=== PATIENT | female | born 1970 | race Caucasian/White ===

== ENCOUNTER 2016-07-17 07:12 | Inpatient (IN) | payer OTHER ==
[2016-07-17] VITALS (7 sets, daily range): BP systolic 110–121; BP diastolic 71–78; PULSE 71–81; TEMP 36.5–37; O2SAT 92–97; Ht 165.1 cm; Wt 133.5 kg
[~2016-07-17] VITALS: Ht 165.1 cm; Wt 133.5 kg
[2016-07-17] MEDS ORDERED: MoRPHine SULFATE 4 MG/ML 1 ML CARP\\VIAL IV STA (07:42)
[2016-07-17] MEDS ORDERED: ONDANSETRON INJ 2 MG/ML 2 ML VIAL IV STA (07:42)
[2016-07-17] MEDS ORDERED: OPTIRAY 320 IV PRN (08:00)
[2016-07-17 08:07] LABS: BASO % 0.3 %; BASO ABS # 0.03 K/uL (0-0.2); COMPLETE YES; EOS % 0.8 %; HEMATOCRIT 37.6 % (37-47); IG% 0.2 %; LYMPH % 9.4 %; LYMPH ABS # 1.02 K/uL (1.2-3.4); MEAN CELL VOLUME 87.9 fL (80-100); MEAN CORPUSCULAR HEMOGLOBIN 30.1 pg (25-34); MEAN CORPUSCULAR HGB CONC 34.3 g/dl (32-36); MONO % 4.4 %; NEUT % 84.9 %; PLATELET COUNT 208 K/uL (130-400); RED BLOOD COUNT 4.28 M/uL (4.2-5.4); WHITE BLOOD COUNT 10.82 K/uL (4.8-10.8)
[2016-07-17 08:22] LABS: CALCIUM 8.4 mg/dl (8.5-10.1)
[2016-07-17 08:24] LABS: CREATININE 0.49 mg/dl (0.60-1.20); POTASSIUM 3.7 mmol/L (3.5-5.1); PREG INTERNAL NEGATIVE QC NEG CLEAR BACKGROUND; PREG INTERNAL POSITIVE QC POS CONTROL LINE
[2016-07-17] MEDS ORDERED: SODIUM CHLORIDE 0.9% 1000ML 1,000 ML IV STA (08:26)
[2016-07-17] MEDS ORDERED: SODIUM CHLORIDE 0.9% 1000ML 500 ML IV STA (08:26)
--- NOTE | 2016-07-17 09:05 | DIAGNOSTIC IMAGING REPORT ---
PELVIS W/IV CONT ONLY (CT) HISTORY: Rectal pain. TECHNIQUE: Multiaxial CT images of the pelvis are performed following the use of intravenous contrast. COMPARISON STUDY: None. FINDINGS: Suboptimal evaluation of pelvis due to streak artifact from the patient's body habitus and abutting the CT scan tree. Within the left anterior perianal location there is a 3.1 x 2.8 cm loculated fluid collection. There is mild surrounding fat stranding. This favors a perianal abscess. No evidence for supralevator extension. Pelvic organs are not well visualized. However, the bladder, uterus, and ovaries appear unremarkable. No pelvic free fluid. No significant pelvic lymphadenopathy. Sigmoid diverticulosis. Tiny fat-containing umbilical hernia. No fractures within the visualized osseous structures. IMPRESSION: There is a 3.1 x 2.8 cm loculated fluid collection within the left anterior perianal location. This likely represents a perianal abscess. Electronically signed by: Fletcher Jacinto M.D. 07/17/2016 9:04 AM Dictated Date/Time: 07/17/2016 9:00 AM
--- NOTE | 2016-07-17 09:47 | EMERGENCY ROOM VISIT NOTE ---
History First contact with patient: : Chief Complaint: RECTAL PAIN Stated Complaint: GI TRACK PAIN, Nursing Triage Summary: Pt c/o hemorrhoid that she noticed Sunday History of Present Illness Patient is a 46-year-old Y[place] female who presents to the emergency Department coming by her for evaluation of rectal pain 5 days. Patient states that last Sunday she began to notice left-sided rectal pain, swelling and pressure. It has progressively worsened throughout the weekend and she states that it woke her at around 2:30 this morning. She presently rates her pain a 10 /10. She has been using acetaminophen without relief. She has had difficulty finding a comfortable position, stating that when she sits she feels a deep pressure and feels like she is sitting on a lump. She denies any drainage or discharge from the area. She subjectively felt feverish and had chills last night but did not record her temperature with a thermometer. She denies any dysuria, frequency, urgency or hematuria. She states that her menses started yesterday, and was normal for her. She reports having a bowel movement this morning, noted some discomfort with this, but denies any diarrhea, melena or hematochezia. She does note that her bowel movements have been normal for a couple of months. She relates going between constipation and loose stools. She has never had this evaluated. She's never had a colonoscopy. Review of Systems Review of systems as per HPI. All other systems reviewed were negative. 10 systems reviewed. Past Medical/Surgical History Medical Problems: (1) No Known Active Medical Problems Surgical Problems: (1) H/O section Electronic medical records are reviewed and summarized as above/below. See Problem List. Social History Smoking Status: Never Smoker Marital Status: Housing Status: lives with family Current/Historical Medications No Active Prescriptions or Reported Meds Allergies Coded Allergies: Amoxicillin (Verified Allergy, Severe, SHORTNESS OF BREATH, 07/17/16) Penicillins (Verified Allergy, Severe, SHORTNESS OF BREATH, 07/17/16) Physical Exam Vital Signs Date Time Temp Pulse Resp B/P Pulse Ox O2 Delivery O2 Flow Rate FiO2 07/17/16 10:23 80 20 123/81 97 Room Air 07/17/16 09:22 84 20 117/84 98 Room Air 07/17/16 08:08 84 20 115/76 92 Room Air 07/17/16 07:18 36.9 93 20 156/96 92 Room Air Physical Exam CONSTITUTIONAL: Patient is an uncomfortable-appearing 46-year-old white female who is awake and alert and in mild distress due to her discomfort. CARDIOVASCULAR: Regular rate and rhythm, with normal S1 and S2, no murmur or gallop or rub is heard. No carotid bruits auscultated. No JVD. Peripheral pulses easily palpable. RESPIRATORY: Breath sounds equal and clear to auscultation without wheezes, rales, or rhonchi heard. Full and equal chest expansion without accessory muscle use or retractions. ABDOMEN: Bowel sounds are present. Abdomen is soft, obese, nontender and nondistended. /RECTAL : Examination of the perineal/rectal area show a slightly swollen, tender external hemorrhoid, between 4 and 6:00. It is not obviously thrombosed. She does have tenderness and induration in the left rectal area extending toward the perineal area, no fluctuance is appreciated. It is slightly erythematous, although not overtly cellulitic. It does not involve the labial area and does not appear consistent with a swollen gland cyst/ abscess. INTEGUMENTARY: No lesions or rash, normal skin turgor. LYMPH: No lymphadenopathy. Medical Decision & Procedures ER Provider Diagnostic Interpretation: PELVIS W/IV CONT ONLY (CT) HISTORY: Rectal pain. TECHNIQUE: Multiaxial CT images of the pelvis are performed following the use of intravenous contrast. COMPARISON STUDY: None. FINDINGS: Suboptimal evaluation of pelvis due to streak artifact from the patient's body habitus and abutting the CT scan tree. Within the left anterior perianal location there is a 3.1 x 2.8 cm loculated fluid collection. There is mild surrounding fat stranding. This favors a perianal abscess. No evidence for supralevator extension. Pelvic organs are not well visualized. However, the bladder, uterus, and ovaries appear unremarkable. No pelvic free fluid. No significant pelvic lymphadenopathy. Sigmoid diverticulosis. Tiny fat-containing umbilical hernia. No fractures within the visualized osseous structures. IMPRESSION: There is a 3.1 x 2.8 cm loculated fluid collection within the left anterior perianal location. This likely represents a perianal abscess. Laboratory Results 07/17/16 07:55 Red Blood Count 4.28, Mean Corpuscular Volume 87.9, Mean Corpuscular Hemoglobin 30.1, Mean Corpuscular Hemoglobin Concent 34.3, Mean Platelet Volume 9.0, Neutrophils (%) (Auto) 84.9, Lymphocytes (%) (Auto) 9.4, Monocytes (%) (Auto) 4.4, Eosinophils (%) (Auto) 0.8, Basophils (%) (Auto) 0.3, Neutrophils # (Auto) 9.18, Lymphocytes # (Auto) 1.02, Monocytes # (Auto) 0.48, Eosinophils # (Auto) 0.09, Basophils # (Auto) 0.03 07/17/16 07:55 Test 07/17/16 07:55 White Blood Count 10.82 K/uL (4.8-10.8) Red Blood Count 4.28 M/uL (4.2-5.4) Hemoglobin 12.9 g/dL (12.0-16.0) Hematocrit 37.6 % (37-47) Mean Corpuscular Volume 87.9 fL (80-100) Mean Corpuscular Hemoglobin 30.1 pg (25-34) Mean Corpuscular Hemoglobin Concent 34.3 g/dl (32-36) Platelet Count 208 K/uL (130-400) Mean Platelet Volume 9.0 fL (7.4-10.4) Neutrophils (%) (Auto) 84.9 % Lymphocytes (%) (Auto) 9.4 % Monocytes (%) (Auto) 4.4 % Eosinophils (%) (Auto) 0.8 % Basophils (%) (Auto) 0.3 % Neutrophils # (Auto) 9.18 K/uL (1.4-6.5) Lymphocytes # (Auto) 1.02 K/uL (1.2-3.4) Monocytes # (Auto) 0.48 K/uL (0.11-0.59) Eosinophils # (Auto) 0.09 K/uL (0-0.5) Basophils # (Auto) 0.03 K/uL (0-0.2) RDW Standard Deviation 42.6 fL (36.4-46.3) RDW Coefficient of Variation 13.3 % (11.5-14.5) Immature Granulocyte % (Auto) 0.2 % Immature Granulocyte # (Auto) 0.02 K/uL (0.00-0.02) Anion Gap 9.0 mmol/L (3-11) Est Creatinine Clear Calc Drug Dose 200.5 ml/min Estimated GFR () 136.4 Estimated GFR (Non- 117.7 BUN/Creatinine Ratio 19.0 (10-20) Calcium Level 8.4 mg/dl (8.5-10.1) Human Chorionic Gonadotropin, Qual NEG (NEG) Medications Administered Medications (Trade) Dose Ordered Sig/Daniel Route Start Time Stop Time Status Last Admin Dose Admin Ondansetron HCl (Zofran Inj) 4 mg NOW STAT IV 07/17/16 07:42 07/17/16 07:45 DC 07/17/16 08:04 4 MG Morphine Sulfate 4 mg 4 mg NOW STAT IV 07/17/16 07:42 07/17/16 07:45 DC 07/17/16 08:05 4 MG Sodium Chloride 500 ml @ 999 mls/hr Q31M STAT IV 07/17/16 08:26 07/17/16 08:56 DC 07/17/16 09:22 999 MLS/HR Sodium Chloride (Nss 1000ml) 1,000 ml @ 250 mls/hr Q4H STAT IV 07/17/16 08:26 07/17/16 12:25 07/17/16 08:26 250 MLS/HR Metronidazole (Flagyl / Nss) 500 mg STK-MED ONCE .ROUTE 07/17/16 10:21 07/17/16 10:22 DC 07/17/16 10:23 500 MG ED Course The patient was seen and assessed as above. Her old records reviewed. IV lock was initiated and she was hydrated with normal saline solution. She was made NPO. Patient was hydrated with normal saline solution, medicated with morphine 4 mg and Zofran 4 mg IV. CBC with differential, BMP and serum hCG were performed. Given the patient's physical exam findings, I did elect to perform a CT scan of the pelvis with IV contrast only to evaluate the perirectal area. Laboratory studies noted a slightly elevated white count at 10,800, with left shift, no bandemia. Electrolytes are within normal limits. Renal function is not elevated. Serum hCG was negative. CT scan was consistent with a roughly 3 x 3 cm loculated fluid collection within the left anterior perianal area, likely representing a perianal abscess. The patient was reviewed with attending physician, and discussed with general surgery on-call, Dr. Mendoza. He evaluated the patient in the emergency department , and plans to take her to the OR for I&D, then admission for IV antibiotics. Differential diagnoses entertained included thrombosed hemorrhoid, or perirectal versus perianal abscess, Bartholin gland cyst/abscess, among others. Her physical exam is not consistent with Tj's gangrene. Medical Decision See ED Course. Impression Primary Impression: Perianal abscess Departure Information Dispostion Being Evaluated By Surgeon Prescriptions No Active Prescriptions or Reported Meds Referrals Carito Anderson PA-C (PCP) Patient Instructions [facility]
[2016-07-17] MEDS ORDERED: CIPROFLOXACIN 400MG / 200ML D5W IV STA (10:13)
[2016-07-17] MEDS ORDERED: METRONIDAZOLE 500MG / 100ML NSS IV STA (10:13)
--- NOTE | 2016-07-17 10:20 | History and Physical: Surg Cnt ---
History & Physical Date July 17, 2016. Chief Complaint Rectal pain x 5 days History of Present Illness The patient is a 46 year old female with complaints of rectal pain for the past 5 days. States she noticed it starting Sunday and progressively got worse. States she has been unable to get in a comfortable position. Denies of any drainage. Last bowel movement was this morning which she states she had some discomfort with it. Denies of any blood in stools. Started her Menses this morning. Denies of any similar episodes. Pain is severe, rating a 10/10. States she had some chills and sweats but unsure about a fever. CT scan of the pelvis showed a 3.1 x 2.8 cm loculated fluid collection within the left anterior perianal location. This likely represents a perianal abscess. She has a slight leukocytosis of 10.82 Vital signs stable Past Medical/Surgical History Medical Problems: (1) No Known Active Medical Problems Surgical Problems: (1) H/O section Allergies Coded Allergies: Amoxicillin (Verified Allergy, Severe, SHORTNESS OF BREATH, 07/17/16) Penicillins (Verified Allergy, Severe, SHORTNESS OF BREATH, 07/17/16) Home Medications No Active Prescriptions or Reported Meds Physical Examination Skin: warm/dry, no rash Head: normocephalic, atraumatic Neck: trachea midline Respiratory/Chest: no respiratory distress Genitourinary - Female: external genitalia normal, + pertinent finding (menses with blood present) Neurologic/Psych: alert, oriented x 3 Addiitonal Comments: Anterior left perianal area with induration present. No significant cellulitis or streaking. No drainage. Very tender on palpation. Unable to completely define abscess borders on palpation. Diagnosis PELVIS W/IV CONT ONLY (CT) HISTORY: Rectal pain. TECHNIQUE: Multiaxial CT images of the pelvis are performed following the use of intravenous contrast. COMPARISON STUDY: None. FINDINGS: Suboptimal evaluation of pelvis due to streak artifact from the patient's body habitus and abutting the CT scan tree. Within the left anterior perianal location there is a 3.1 x 2.8 cm loculated fluid collection. There is mild surrounding fat stranding. This favors a perianal abscess. No evidence for supralevator extension. Pelvic organs are not well visualized. However, the bladder, uterus, and ovaries appear unremarkable. No pelvic free fluid. No significant pelvic lymphadenopathy. Sigmoid diverticulosis. Tiny fat-containing umbilical hernia. No fractures within the visualized osseous structures. IMPRESSION: There is a 3.1 x 2.8 cm loculated fluid collection within the left anterior perianal location. This likely represents a perianal abscess. Anterior Left Perianal abscess - slight leukocytosis of 10.82 - very tender on palpation - CT of the pelvis showing a 3.1 x 2.8 cm loculated fluid collection within the left anterior perianal location. Plan of Treatment Plan to take patient to operating room for incision and drainage of perianal abscess. May require admission for a few days of IV antibiotics She will have packing placed following drainage. IV Cipro/Flagyl for now. Dr. Mendoza has seen and examined patient, agrees with assessment and plan.
[2016-07-17] MEDS ORDERED: METRONIDAZOLE 500MG / 100ML NSS ONE (10:21)
[2016-07-17] MEDS ORDERED: CIPROFLOXACIN 400MG / 200ML D5W ONE (10:52)
[2016-07-17] MEDS ORDERED: FENTANYL CITRATE INJ 50 MCG/1 ML 2 ML VIAL ONE ×3 (11:17→11:48)
[2016-07-17] MEDS ORDERED: MIDAZOLAM HCL 1 MG/ML 2ML VIAL ONE ×2 (11:17→12:04)
[2016-07-17] MEDS ORDERED: DEXAMETHASONE SOD INJ 4 MG/ML VIAL ONE ×2 (11:19→12:03)
[2016-07-17] MEDS ORDERED: PROPOFOL IV EMULSION 10 MG/ML 20 ML VIAL IV ONE ×2 (11:19→12:03)
[2016-07-17] MEDS ORDERED: ONDANSETRON INJ 2 MG/ML 2 ML VIAL ONE ×2 (11:19→12:03)
[2016-07-17] MEDS ORDERED: LIDOCAINE HCL 2% 2 ML VIAL (20MG/ML) ONE ×2 (11:19→12:03)
[2016-07-17] MEDS ORDERED: ROCURONIUM BROMIDE 10 MG/ML 5 ML VIAL ONE (11:19)
[2016-07-17] MEDS ORDERED: BUPIVACAINE/EPINEPHRINE 0.5% MPF 1:200,000 30 ML VIAL ONE (11:25)
[2016-07-17] MEDS ORDERED: GELATIN SPONGE 12-7MM ONE (11:25)
[2016-07-17] MEDS ORDERED: GELATIN SPONGE SZ 100 ONE (11:26)
--- NOTE | 2016-07-17 11:27 | History & Physical Bridge Note ---
H&P Re-Evaluation Bridge Note: I have examined the patient, reviewed the History & Physical and in the interval since the performance of the History & Physical I have noted the following changes of clinical significance: No changes noted
[2016-07-17] MEDS ORDERED: ONDANSETRON INJ 2 MG/ML 2 ML VIAL IV PRN ×2 (11:30→11:45)
[2016-07-17] MEDS ORDERED: OXYCODONE/ACETAMINOPHEN 5-325 TAB PO PRN (11:30)
[2016-07-17] MEDS ORDERED: ACETAMINOPHEN 325 MG TAB PO PRN (11:30)
[2016-07-17] MEDS ORDERED: HYDROmorphone INJ 1 MG/ML SYR IV PRN (11:30)
[2016-07-17] MEDS ORDERED: FENTANYL CITRATE INJ 50 MCG/1 ML 2 ML VIAL IV PRN (11:45)
[2016-07-17] MEDS ORDERED: EpHEDrine SULFATE INJ 50 MG/ML AMP IV PRN (11:45)
[2016-07-17] MEDS ORDERED: ATROPINE SULFATE 0.1 MG/ML 5ML SYR IV PRN (11:45)
[2016-07-17] MEDS ORDERED: PROMETHAZINE HCL INJ 6.25 MG in SODIUM CHLORIDE 0.9% 50ML 50 ML IV PRN (11:45)
[2016-07-17] MEDS ORDERED: SUCCINYLCHOLINE CHLORIDE 20 MG/ML 10 ML VIAL IV ONE (12:03)
[2016-07-17] MEDS ORDERED: BACITRACIN OINT 15 GM TUBE ONE (12:05)
--- NOTE | 2016-07-17 12:18 | [facility] Post Operative Brief Note ---
Immediate Operative Summary Operative Date July 17, 2016. Pre-Operative Diagnosis steve-rectal abscess Post-Operative Diagnosis same Procedure(s) Performed incision and drainage steve-rectal abscess Surgeon Bernice Sage Nail Maker Surgeon(s) certified surgical tech/first assistant Estimated Blood Loss 10ml Findings steve-rectal abscess, wound culture sent Fluids (cc crystalloids) 500ml Specimens wound culture Drains packing Anesthesia general Complication(s) None Disposition Recovery Room / PACU
--- NOTE | 2016-07-17 13:09 | Anesthesiology Progress Note ---
Anesthesia Post Op Note Date & Time July 17, 2016 at 13:09 Vital Signs Pain Intensity: 0 Vital Signs Past 12 Hours Date Time Temp Pulse Resp B/P Pulse Ox O2 Delivery O2 Flow Rate FiO2 07/17/16 13:00 36.7 82 21 121/75 95 Nasal Cannula 2 07/17/16 12:50 80 15 122/75 97 Nasal Cannula 2 07/17/16 12:40 84 17 118/81 100 Mask 10 07/17/16 12:30 36.5 90 20 139/99 100 Mask 10 07/17/16 12:22 36.5 98 16 135/78 100 Mask 10 07/17/16 10:23 80 20 123/81 97 Room Air 07/17/16 09:22 84 20 117/84 98 Room Air 07/17/16 08:08 84 20 115/76 92 Room Air 07/17/16 07:18 36.9 93 20 156/96 92 Room Air Notes Mental Status: alert / awake / arousable, participated in evaluation Pt Amnestic to Procedure: Yes Nausea / Vomiting: adequately controlled Pain: adequately controlled Airway Patency, RR, SpO2: stable & adequate BP & HR: stable & adequate Hydration State: stable & adequate Anesthetic Complications: no major complications apparent
[2016-07-17] MEDS: D5W AND 1/2NSS + 20MEQ KCL 1,000 ML IV SCH (14:59)
--- NOTE | 2016-07-17 15:00 | OPERATIVE REPORT ---
DATE OF OPERATION: 07/17/2016 PREOPERATIVE DIAGNOSIS: Perirectal abscess. POSTOPERATIVE DIAGNOSIS: Same. PROCEDURE: I\T\D of perirectal abscess. SURGEON: Dr. Bernice Mendoza. ANESTHESIA: General. ESTIMATED BLOOD LOSS: About 10 mL. IV FLUIDS: 600 mL. FINDINGS: Rectal abscess. SPECIMEN: The wound culture sent. COMPLICATIONS: None. INDICATIONS FOR THE PROCEDURE: This is a 46-year-old female who presented to the ED with 5 days history of perirectal pain. The patient had a CT scan which showed a perirectal abscess. The patient will be required to do I\T\D of perirectal abscess. I did talk to the patient about the benefit and risk, alternate procedure. I indicated the risks may include but not limited such as bleeding, infection, recurrence, may need more procedure, the patient understands. She signed informed consent and I answered all questions. DETAILS OF PROCEDURE: We brought the patient to the OR, put the patient in supine position. The patient received SCDs on bilateral legs to prevent DVT. Also, the patient received 500 mg Flagyl and 400 mg Cipro for preop antibiotic and the patient received general anesthesia without difficulty. Then, we put the patient in lithotomy position. I then we found the patient had a large abscess located at 1 o'clock. I did a rectal exam showing no more findings on the rectal wall. No mass on the rectal wall; however, patient had external hemorrhage it was unclogged also and we injected the local anesthesia around the abscess using 1% lidocaine mixed with 0.25% Marcaine, then I made a small incision and there was a large amount of pus came out from the abscess at 1 o'clock. Once we cleaned the pus, packing used quarter inch packing Kerlix. Rechecked no active bleeding and then we put the dressing on. The patient tolerated the procedure well. All the instrument, needle and sponge count correct x2 at the end of case. The patient transferred to recovery room in stable condition. After procedure, I did talk to the patient's family member, they understand. I attest to the content of the Intraoperative Record and any orders documented therein. Any exceptions are noted below. JAMMIE
[2016-07-17] MEDS: METRONIDAZOLE / NSS 500 MG in PREMIXED NSS 0 ML IV SCH (18:11)
[2016-07-17] MEDS: CIPROFLOXACIN / D5W 400 MG in PREMIXED IN D5W 200 ML IV SCH (20:37)
[2016-07-18] MEDS: METRONIDAZOLE / NSS 500 MG in PREMIXED NSS 0 ML IV SCH ×3 (02:27→18:14)
[2016-07-18] MEDS: D5W AND 1/2NSS + 20MEQ KCL 1,000 ML IV SCH ×2 (02:28→16:53)
[2016-07-18 03:24] VITALS: BP 98/61; PULSE 65; TEMP 37; O2SAT 95
[2016-07-18 07:04] LABS: BASO % 0.2 %; BASO ABS # 0.02 K/uL (0-0.2); COMPLETE YES; EOS % 0.2 %; HEMATOCRIT 36.5 % (37-47); IG% 0.4 %; LYMPH % 8.2 %; MEAN CORPUSCULAR HEMOGLOBIN 29.4 pg (25-34); MEAN CORPUSCULAR HGB CONC 33.4 g/dl (32-36); MEAN PLATELET VOLUME 8.8 fL (7.4-10.4); MONO % 5.5 %; NEUT % 85.5 %; PLATELET COUNT 216 K/uL (130-400); RED BLOOD COUNT 4.15 M/uL (4.2-5.4); WHITE BLOOD COUNT 12.26 K/uL (4.8-10.8)
[2016-07-18 07:05] VITALS: BP 98/63; PULSE 71; TEMP 37.1; O2SAT 96
--- NOTE | 2016-07-18 08:12 | Anesthesiology Progress Note ---
Anesthesia Post Op Note Date & Time July 18, 2016 at 08:12 Vital Signs Pain Intensity: 0.0 Vital Signs Past 12 Hours Date Time Temp Pulse Resp B/P Pulse Ox O2 Delivery O2 Flow Rate FiO2 07/18/16 07:05 37.1 71 16 98/63 96 Room Air 07/18/16 03:24 37.0 65 16 98/61 95 Room Air 07/18/16 00:27 Room Air 07/17/16 22:48 37.0 71 16 111/71 92 Nasal Cannula 2.0 Notes Mental Status: alert / awake / arousable, participated in evaluation Pt Amnestic to Procedure: Yes Nausea / Vomiting: adequately controlled Pain: adequately controlled Airway Patency, RR, SpO2: stable & adequate BP & HR: stable & adequate Hydration State: stable & adequate Anesthetic Complications: no major complications apparent
[2016-07-18] MEDS: CIPROFLOXACIN / D5W 400 MG in PREMIXED IN D5W 200 ML IV SCH ×2 (08:52→20:40)
[2016-07-18 11:10] VITALS: BP 103/67; PULSE 77; TEMP 36.5; O2SAT 96
--- NOTE | 2016-07-18 14:36 | Surgery Progress Note ---
Surgery Progress Note Date of Service July 18, 2016. Subjective Post OP Day: 1 + diet (tolerating regular diet), + feeling well, No complaints, No nausea, No pain controlled, No vomiting Objective Vital Signs: Date Time Temp Pulse Resp B/P Pulse Ox O2 Delivery O2 Flow Rate FiO2 07/18/16 11:10 36.5 77 14 103/67 96 Room Air 07/18/16 09:00 Room Air 07/18/16 07:05 37.1 71 16 98/63 96 Room Air 07/18/16 03:24 37.0 65 16 98/61 95 Room Air 07/18/16 00:27 Room Air 07/17/16 22:48 37.0 71 16 111/71 92 Nasal Cannula 2.0 07/17/16 19:20 36.7 74 18 117/77 93 Room Air 07/17/16 16:20 36.5 78 18 121/78 95 Nasal Cannula 1.0 07/17/16 15:40 Nasal Cannula 07/17/16 15:20 36.8 81 18 117/78 96 Nasal Cannula 1.0 07/17/16 14:45 76 18 114/75 97 General Appearance: WD/WN, no apparent distress Head: normocephalic, atraumatic Neck: trachea midline Respiratory/Chest: no respiratory distress, no accessory muscle use Incision(s): findings (perianal incision , almost closed with no cavity present , erythema and induration resolved, no fluctuance) Laboratory Results: Results Past 24 Hours Test 07/18/16 06:42 Range/Units White Blood Count 12.26 4.8-10.8 K/uL Red Blood Count 4.15 4.2-5.4 M/uL Hemoglobin 12.2 12.0-16.0 g/dL Hematocrit 36.5 37-47 % Mean Corpuscular Volume 88.0 80-100 fL Mean Corpuscular Hemoglobin 29.4 25-34 pg Mean Corpuscular Hemoglobin Concent 33.4 32-36 g/dl Platelet Count 216 130-400 K/uL Mean Platelet Volume 8.8 7.4-10.4 fL Neutrophils (%) (Auto) 85.5 % Lymphocytes (%) (Auto) 8.2 % Monocytes (%) (Auto) 5.5 % Eosinophils (%) (Auto) 0.2 % Basophils (%) (Auto) 0.2 % Neutrophils # (Auto) 10.50 1.4-6.5 K/uL Lymphocytes # (Auto) 1.00 1.2-3.4 K/uL Monocytes # (Auto) 0.67 0.11-0.59 K/uL Eosinophils # (Auto) 0.02 0-0.5 K/uL Basophils # (Auto) 0.02 0-0.2 K/uL RDW Standard Deviation 42.4 36.4-46.3 fL RDW Coefficient of Variation 13.1 11.5-14.5 % Immature Granulocyte % (Auto) 0.4 % Immature Granulocyte # (Auto) 0.05 0.00-0.02 K/uL Assessment & Plan POD # 1 s/p incision and drainage of perianal abscess -vitals stable - slight bump in leukocytosis - tolerating regular diet - pain resolved Plan: Continue regular diet repeat cbc in am incision small and no cavity to pack Continue one more day of IV antibiotic given increase in WBC most likely discharge tomorrow morning. Discussed with Dr. Mendoza who agrees with above.
[2016-07-18 15:15] VITALS: BP 94/61; PULSE 79; TEMP 36.4; O2SAT 93
[2016-07-18] MEDS ORDERED: NURSING VERBAL MED ORDER ONE (16:15)
[2016-07-18] MEDS: BACITRACIN OINT 15 GM TUBE EXT SCH (18:14)
[2016-07-18 22:49] VITALS: BP 98/65; PULSE 71; TEMP 37; O2SAT 96
[2016-07-19] MEDS: METRONIDAZOLE / NSS 500 MG in PREMIXED NSS 0 ML IV SCH ×2 (02:05→10:55)
[2016-07-19] MEDS: D5W AND 1/2NSS + 20MEQ KCL 1,000 ML IV SCH (05:31)
[2016-07-19 07:01] LABS: HEMATOCRIT 35.9 % (37-47); MEAN CELL VOLUME 88.4 fL (80-100); MEAN CORPUSCULAR HEMOGLOBIN 28.3 pg (25-34); MEAN PLATELET VOLUME 8.8 fL (7.4-10.4); PLATELET COUNT 217 K/uL (130-400); RED BLOOD COUNT 4.06 M/uL (4.2-5.4)
[2016-07-19] MEDS: BACITRACIN OINT 15 GM TUBE EXT SCH (08:09)
[2016-07-19] MEDS: CIPROFLOXACIN / D5W 400 MG in PREMIXED IN D5W 200 ML IV SCH (08:09)
--- NOTE | 2016-07-19 11:35 | Surgery Progress Note ---
Surgery Progress Note Date of Service July 19, 2016. Subjective Post OP Day: 2 + ambulating, + diet (regular diet), + feeling well, No complaints, No nausea, No vomiting Objective Vital Signs: Date Time Temp Pulse Resp B/P Pulse Ox O2 Delivery O2 Flow Rate FiO2 07/19/16 08:05 Room Air 07/19/16 00:11 Room Air 07/18/16 22:49 37.0 71 16 98/65 96 Room Air 07/18/16 15:30 Room Air 07/18/16 15:15 36.4 79 18 94/61 93 Room Air General Appearance: WD/WN, no apparent distress Head: normocephalic, atraumatic Neck: trachea midline Respiratory/Chest: no respiratory distress, no accessory muscle use Laboratory Results: Results Past 24 Hours Test 07/19/16 06:20 Range/Units White Blood Count 6.20 4.8-10.8 K/uL Red Blood Count 4.06 4.2-5.4 M/uL Hemoglobin 11.5 12.0-16.0 g/dL Hematocrit 35.9 37-47 % Mean Corpuscular Volume 88.4 80-100 fL Mean Corpuscular Hemoglobin 28.3 25-34 pg Mean Corpuscular Hemoglobin Concent 32.0 32-36 g/dl RDW Standard Deviation 43.5 36.4-46.3 fL RDW Coefficient of Variation 13.3 11.5-14.5 % Platelet Count 217 130-400 K/uL Mean Platelet Volume 8.8 7.4-10.4 fL Assessment & Plan POD # 2 s/p incision and drainage of perianal abscess -vitals stable - leukocytosis resolved - tolerating regular diet - pain resolved Plan: D/C home with oral antibiotics for 7 days follow-up with Dr. Mendoza in 1 week Discharge instructions given Dr. Mendoza has seen patient and agrees with above.
[2016-07-19] MEDS ORDERED: METR500T PO (11:36)
[2016-07-19] MEDS ORDERED: CIPR-255 PO (11:36)
--- NOTE | 2016-07-19 11:38 | Discharge Instructions ---
Discharge Instructions Date of Service July 19, 2016. Admission Reason for Admission: Steve-Rectal Abscess Discharge Discharge Diagnosis / Problem: perianal abscess Discharge Goals Goal(s): Decrease discomfort Activity Recommendations Activity Limitations: as noted below No restrictions You may shower Keep area of incision clean and dry as much as possible . Instructions / Follow-Up Instructions / Follow-Up Take oral antibiotics for total of 7 days as prescribed follow-up in surgical office at [facility] in 1 week, call office at to make an appointment Current Hospital Diet Patient's current hospital diet: Regular Diet Discharge Diet Recommended Diet: Regular Diet Procedures Procedures Performed: incision and drainage steve-rectal abscess Pending Studies Studies pending at discharge: no Medical Emergencies . Who to Call and When: Medical Emergencies: If at any time you feel your situation is an emergency, please call 911 immediately. . Non-Emergent Contact Non-Emergency issues call your: Primary Care Provider, Surgeon Call Non-Emergent contact if: you have a fever, temperature is above 101.5, your pain is not controlled, your pain is worsening, wound has increased drainage, wound has increased redness, wound has increased pain . "Provider Documentation" section prepared by Mary Ann Valerio. . VTE Core Measure Inpt VTE Proph given/why not?: SCD's
[2016-07-19 13:00] VITALS: BP 98/65; PULSE 71; TEMP 37; O2SAT 96
--- NOTE | 2016-07-21 09:26 | Discharge Summary ---
Discharge Summary Dates Admission Date / Time: July 17, 2016 at 11:37 Discharge Date: July 19, 2016 Dispostion / Condition Discharge Disposition: Home Condition at Discharge: Good Principal Diagnosis (1) Steve-rectal abscess Consultations / Procedures Consultations: None Procedures: Incision and drainage of steve-anal abscess Pending Studies / Follow-Up None Medication Reconciliation New Medications: Ciprofloxacin Hcl (Cipro) 500 Mg Tab 500 MG PO BID for 7 Days, #14 TAB 0 Refills Metronidazole (Flagyl) 500 Mg Tab 500 MG PO TID for 7 Days, #21 TAB Admission HPI Per the Admitting provider: Mingo presented to the emergency room on 07/17/2016 with complaint of steve- rectal pain for the past 5 days. States she never had this type of pain before. Denied of any fever but had some chills. States the pain progressively got worse. No drainage. NO rectal bleeding. No constipation or straining. Last bowel movement was the morning of admission and normal. She currently has her menstrual cycle. CT scan of the pelvis showed a 3.1 x 2.8 cm loculated fluid collection within the left anterior perianal location. This likely represents a perianal abscess. She had a slight leukocytosis of 10.82. Hospital Course (1) Steve-rectal abscess Patient was taken to the operating room given the location of the abscess for incision and drainage. The area was drained and packing placed. She tolerated procedure well and was transferred to Med/Surg in stable condition. IV antibiotics of Cipro and Flagyl, IV fluids, Regular diet, and Percocet for pain controlled were ordered. POD # 1 , patient was feeling well, her pain was completely resolved however there was a slight bump in her white count at 12.26. Therefore she was kept one more night for IV antibiotics. Wound was evaluated and incision healing without any need for packing and bacitracin was applied. Repeat CBC on POD # 2 showed resolved leukocytosis. She was discharged on POD # 2 in stable condition with Rx for PO Cipro and Flagyl for 7 days. Follow-up with Dr. Mendoza in 1 week. Discharge Instructions as given to patient Copies To Primary Care Provider: Carito Anderson PA-C.
== END 2016-07-19 15:05 | disposition home or self-care (01) | DRG 395 ==
LOC: ENRESERVDT → ENRESERVTM → C.EDB 07:13 → C.MSW 11:37
PROVIDERS: ADMIT Surgery; ATTEND Surgery
PROC: 0D9P3ZX Drainage of Rectum, Percutaneous Approach, Diagnostic (ICD-10-PCS; principal; 2016-07-17 10:45)
DX: K61.1 Rectal abscess (principal)